=== PATIENT | male | born 1975 | race Caucasian/White ===

== ENCOUNTER 2017-03-13 23:14 | Emergency (ER) | payer SELFPAY ==
[~2017-03-13] VITALS: Ht 188 cm; Wt 116.4 kg
[~2017-03-13 23:14] MED LIST: ASA325 PO
--- NOTE | 2017-03-13 23:16 | ED.REPORT ---
HPI-General Illness Date of Service March 13, 2017 ED Provider: Nursing Notes Stated Complaint: OVERDOSE Allergies: Coded Allergies: fentanyl (Verified Adverse Reaction, Intermediate, Nausea,Vomiting, ) Scheduled Aspirin-Expunged Drug, Do Not Renew! (Aspirin-Expunged Drug, Do Not Renew!) 325 Mg Tablet 325 MG PO PRN General Time Seen by MD: 23:16 Physical Exam Vital Signs Vital Signs Date Time Temp Pulse Resp B/P Pulse Ox O2 Delivery O2 Flow Rate FiO2 03/14/17 02:36 108 24 170/98 98 Room Air Interpretation & Diagnostics Lab Results Interpretation Result Diagram: 03/13/17 2334 Test 03/13/17 23:34 03/13/17 23:55 White Blood Count 10.6th/mm3 (3.8-10.1) Red Blood Count 5.61mil/mm3 (4.40-5.80) Hemoglobin 16.0g/dL (13.8-17.2) Hematocrit 47.1% (41.0-50.0) Mean Corpuscular Volume 84.0fL (81-100) Mean Corpuscular Hemoglobin 28.5pg (27.0-35.0) Mean Corpuscular Hemoglobin Concent 34.0% (32.0-37.0) Red Cell Distribution Width 14.0% (12.3-15.4) Platelet Count 291bil/L (150-400) Neutrophils (%) (Auto) 54.6% (40-74) Lymphocytes (%) (Auto) 30.6% (14-46) Monocytes (%) (Auto) 9.4% (4-12) Eosinophils (%) (Auto) 4.3% (0-5) Basophils (%) (Auto) 0.8% (0-3) Sodium Level 142mEq/L (134-144) Potassium Level 3.1mEq/L (3.5-5.2) Chloride Level 101mEq/L (97-108) Carbon Dioxide Level 24mmol/L (18-29) Blood Urea Nitrogen 16mg/dL (6-24) Creatinine 1.23mg/dL (0.76-1.27) Estimat Glomerular Filtration Rate 69mL/min (>59) Glucose Level 151mg/dL (60-99) Calcium Level 9.2mg/dL (8.5-10.1) Total Bilirubin 0.5mg/dL (0.0-1.2) Aspartate Amino Transf (AST/SGOT) 25U/L (0-50) Alanine Aminotransferase (ALT/SGPT) 31U/L (0-44) Alkaline Phosphatase 57U/L (25-150) Total Protein 8.0g/dL (6.4-8.4) Albumin 4.8g/dL (3.4-5.0) Acetaminophen Level < 15.0ug/mL Rx (10-25) Alcohols 74mg/dL (0-10) Hold Cotter Top Tube Received (Received) Discharge & Departure Referrals: NOPCP (PCP) Casey Norris MD March 13, 2017 23:16 Discharge & Departure Referrals: NOPCP (PCP) Casey Norris MD March 13, 2017 23:16
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
[2017-03-13 23:27] VITALS: BP 208/126; PULSE 125; RESP 19; O2SAT 100
[2017-03-13 23:38] LABS: BASOPHILS % (AUTO) 0.8 % (0-3); EOSINOPHILS % (AUTO) 4.3 % (0-5); MONOCYTES % (AUTO) 9.4 % (4-12); Mean Corpuscular Hemoglobin 28.5 pg (27.0-35.0); NEUTROPHILS % (AUTO) 54.6 % (40-74); Platelet Count 291 bil/L (150-400)
[2017-03-14] MEDS ORDERED: _Naloxone 2 mg/2 mL 2 Syringe Kit (NASAL USE) NASAL PRN (01:50)
[2017-03-14 02:36] VITALS: BP 170/98; PULSE 108; RESP 24; O2SAT 98
== END 2017-03-14 02:38 | disposition home or self-care (01) ==
LOC: SED 23:14 → EDUNIT# 23:14 → EDBD 23:14 → SED 03-14 02:38
DX: F19.10 Other psychoactive substance abuse, uncomplicated (principal); Y93.89 Activity, other specified; Y92.89 Other specified places as the place of occurrence of the external cause; Y99.8 Other external cause status; Z88.5 Allergy status to narcotic agent
CPT/HCPCS: 36415; 80053; 85025; 99283; G0480